=== PATIENT | female | born 1990 | race Caucasian/White ===

== ENCOUNTER 2016-11-16 19:44 | Emergency (ER) | payer OTHER ==
[2016-11-16] MEDS ORDERED: ORPHENADRINE 60 MG/2 ML AMP ONE (20:54)
[2016-11-16] MEDS ORDERED: KETOROLAC 60 MG/2 ML VIAL IM ONE (20:54)
== END 2016-11-16 22:04 | disposition home or self-care (01) ==
LOC: ER 19:44
DX: S20.219A Contusion of unspecified front wall of thorax, initial encounter (principal); S60.221A Contusion of right hand, initial encounter; V49.59XA Passenger injured in collision with other motor vehicles in traffic accident, initial encounter; S16.1XXA Strain of muscle, fascia and tendon at neck level, initial encounter
CPT/HCPCS: 71020; 72050; 96372